=== PATIENT | male | born 1980 | race Caucasian/White ===

== ENCOUNTER 2017-03-14 22:26 | Emergency (ER) | payer OTHER ==
[2017-03-14 22:32] VITALS: BMI 26.6
[2017-03-14] MEDS ORDERED: ADACEL TDaP IM ONE ×2 (22:41→22:54)
[2017-03-14] MEDS ORDERED: BETADINE SOLN TOP ONE (22:41)
--- NOTE | 2017-03-14 23:39 | DR.GENAD ---
HPI - PCP Primary Care Physician: toñito - Complaint/Symptoms Chief Complaint Doctors Comments: The dog is known to the patient. Patient tetanus is up to date. Chief Complaint:: pt bite by his dog on the lt upper arm animals shots not up to date - Source History Provided: Patient - Mode of Arrival Mode of Arrival: Ambulatory - Timing Onset of Chief Complaint: 03/14/17 PMH - PMH Past Medical History: Yes Past Medical History: Depression Past Surgical History: No Surgical History: Other (wound under left knee cap;) - Family History History of Family Medical Conditions: Yes Family Medical History: Diabetes Mellitus, [place], Hypertension - Social History Does any household member use tobacco: No Alcohol Use: Occasionally Do you use any recreational Drugs:: No Lives With: Family Lives Where: Home - infectious screening In the last 2 months have you had wt loss of >10#?: NO Have you had fever, night sweats or hemotysis?: No Have you traveled outside the country in the last 6 months?: No Isolation: Standard ROS - Review of Systems Eyes: No Symptoms Reported ENTM: No Symptoms Reported Respiratoy: No Symptoms Reported Cardiovascular: No Symptoms Reported Gastrointestinal/Abdominal: No Symptoms Reported Genitourinary: No Symptoms Reported Neurological: No Symptoms Reported Musculoskeletal: Other (dog bit with laceration to the left arm laterally) Integumentary: Lesions (laceration to the left arm) Hematologic/Lymphatic: No Symptoms Reported Endocrine: No Symptoms Reported Psychiatric: No Symptoms Reported All Other Systems: Reviewed and Negative PE - Vital Signs Vitals: Temperature 97.6 F Pulse Rate 83 Respiratory Rate 20 Blood Pressure [Right Arm] 129/78 Blood Pressure 138/102 O2 Sat by Pulse Oximetry 96 - General Limitations: No Limitations General Appearance: Alert, In No Apparent Distress - Head Head Exam: Normal Inspection, Atraumatic - Eyes Eye exam: Normal Appearance, PERRL, EOMI - ENT ENT Exam: Normal Exam, Normal Oropharynx TM/Canal Exam: Bilateral Normal Nose Exam: Normal Nose Exam Mouth Exam: Normal Inspection Throat Exam: Normal Inspection - Neck Neck Exam: Normal Inspection, Full ROM - Chest Chest Inspection: Normal Inspection - Respiratory Respiratory Exam: Normal Lung Sounds Bilat Respiratory Exam: Bilateral Clear to Auscultation - Cardiovascular Cardiovascular Exam: Regular Rate, Normal Rhythm - Abdominal Exam Abdominal Exam: Normal Inspection, Normal Bowel Sounds Abdominal Tenderness: negative: RUQ, RLQ, LUQ, LLQ, Epigastrium, Suprapubic, Diffuse, Mild, Moderate, Severe, Other - Extremities Extremities Exam: Other (left are with a 3cm laceration secondary to dog bite) - Back Back Exam: Normal Inspection - Neurologic Neurological Exam: Alert, Oriented X3, CN II-XII Intact - Psychiatric Psychiatric Exam: Normal Affect - Skin Skin Exam: Warm (dog bite left lateral arm), Dry Procedures - Laceration/Wound Repair Left Arm Wound Length (cm): 3 Wound's Depth, Shape: Superficial, Into muscle, Stellate Wound Explored: no foreign body removed Betadine Prep?: Yes Anesthesia: 1% Lidocaine (7) Wound Debrided: minimal Wound Repaired With: sutures Suture Size/Type: 4:0, Ethilion (6) Number of Sutures: 6 - Diagnosis Discharge Problem: Dog bite of left arm Qualifiers: Encounter type: initial encounter Qualified Code(s): S41.152A - Open bite of left upper arm, initial encounter; W54.0XXA - Bitten by dog, initial encounter; W54.0XXA - Bitten by dog, initial encounter - Discharge Plan Condition: Stable - Follow ups/Referrals Follow ups/Referrals: WHIT RAMIREZ [Primary Care Provider] - 3 days - Instructions
[2017-03-15 00:03] VITALS: BP 128/76
== END 2017-03-15 | disposition home or self-care (01) ==
LOC: ER 22:26
PROC: 0XQ90ZZ Repair Left Upper Arm, Open Approach (ICD-10-PCS; principal; 2017-03-14)
DX: S41.152A Open bite of left upper arm, initial encounter (principal); W54.0XXA Bitten by dog, initial encounter; Y92.9 Unspecified place or not applicable
CPT/HCPCS: 90471; 99282